=== PATIENT | male | born 1995 | race Caucasian/White ===

== ENCOUNTER 2017-02-21 11:59 | Emergency (ER) | payer OTHER ==
[~2017-02-21] VITALS: Ht 177.8 cm; Wt 78.9 kg
[~2017-02-21 11:59] MED LIST: MULT-106 PO
[2017-02-21 12:04] VITALS: Ht 177.8 cm; Wt 78.9 kg
[2017-02-21 12:15] VITALS: O2SAT 99
[2017-02-21] MEDS ORDERED: SODIUM CHLORIDE 0.9% 1000ML 1,000 ML IV ONE (12:31)
[2017-02-21] MEDS ORDERED: ONDANSETRON INJ 2 MG/ML 2 ML VIAL IV STA (12:31)
[2017-02-21] MEDS ORDERED: KETOROLAC TROMETHAMINE 30 MG/ML VIAL IV STA (12:31)
[2017-02-21] MEDS ORDERED: LORAZEPAM 2 MG/ML 1 ML VIAL IV STA (12:31)
[2017-02-21] MEDS ORDERED: CEFTRIAXONE SOD INJ 1 GM ADDVIAL IV STA (12:58)
[2017-02-21 13:23] LABS: BASO % 0.1 %; BASO ABS # 0.02 K/uL (0-0.2); COMPLETE YES; EOS % 0.1 %; HEMATOCRIT 47.7 % (42-52); IG% 0.3 %; LYMPH % 4.6 %; LYMPH ABS # 0.81 K/uL (1.2-3.4); MEAN CELL VOLUME 90.2 fL (80-100); MEAN CORPUSCULAR HEMOGLOBIN 32.1 pg (25-34); MEAN CORPUSCULAR HGB CONC 35.6 g/dl (32-36); MEAN PLATELET VOLUME 9.7 fL (7.4-10.4); NEUT % 89.9 %; PLATELET COUNT 268 K/uL (130-400); RED BLOOD COUNT 5.29 M/uL (4.7-6.1); WHITE BLOOD COUNT 17.49 K/uL (4.8-10.8)
[2017-02-21 13:31] LABS: INR 1.1 (0.9-1.1); PROTHROMBIN TIME (PATIENT) 11.3 SECONDS (9.0-12.0)
--- NOTE | 2017-02-21 13:34 | EMERGENCY ROOM VISIT NOTE ---
History Report prepared by Alma Delia: Lizzie Chacon Under the Supervision of: Dr. Hermelindo Anders M.D. First contact with patient: 12:23 Chief Complaint: VOMITING Stated Complaint: TINGLING HANDS,FAST HEARTBEAT,NAUSEA History of Present Illness The patient is a 22 year old male who presents to the Emergency Room with complaints of nausea and vomiting starting this morning. He woke up with a fever today. He also reports numbness and tingling in hands, chest pain, and a fast heart rate. He denies any history of an anxiety attack. He also complains of lower back pain. He started having a sore throat last night. The patient denies abdominal pain, blood in vomit, diarrhea, urinary symptoms, or any other complaints. He reports drinking alcohol over the weekend. He denies any drug use. He denies any history of IV drug abuse. He denies any history of abdominal surgeries. He does not have any medical problems. Source of History: patient Onset: this morning Position: other (global) Quality: other (nausea and vomiting) Associated Symptoms: + back pain, + chest pain, + fevers, + numbness, + sorethroat, No abdominal pain, No diarrhea, No urinary symptoms Review of Systems See HPI for pertinent positives & negatives. A total of 10 systems reviewed and were otherwise negative. Past Medical & Surgical Medical Problems: (1) No Known Active Medical Problems Family History Patient reports no known family medical history. Social History Smoking Status: Never Smoker Alcohol Use: occasionally Drug Use: none Marital Status: single Occupation Status: student Current/Historical Medications Scheduled Cefdinir (Omnicef), 300 MG PO Q12H Multiple Vitamins W/ Minerals (One Daily Mens), 1 TAB PO DAILY Ondasetron Odt (Zofran Odt), 4 MG SL Q6H Allergies Coded Allergies: Amoxicillin (Unverified Allergy, Unknown, RASH, 09/13/16) Azithromycin (Unverified Allergy, Unknown, RASH, 09/13/16) Penicillins (Unverified Allergy, Unknown, RASH, 09/13/16) Physical Exam Vital Signs Date Time Temp Pulse Resp B/P Pulse Ox O2 Delivery O2 Flow Rate FiO2 02/21/17 14:35 38.2 116 12 117/57 94 02/21/17 13:04 120 14 111/78 99 Room Air 02/21/17 12:15 99 Room Air 02/21/17 12:04 39.5 130 20 135/64 97 Room Air Physical Exam GENERAL: Patient is a healthy-appearing well-nourished HEAD: Normocephalic atraumatic EYES: Ocular movements intact pupils equal and react to light OROPHARYNX mucous membranes are moist no exudates present no erythema or edema present NECK: Supple no nuchal rigidity. No evidence of meningitis or encephalitis on exam. CHEST: Good equal expansion LUNGS: Clear and equal to auscultation CARDIAC: Normal S1 and S2 ABDOMEN: Soft nontender no guarding BACK: No CVA tenderness EXTREMITIES: No pain upon palpation normal muscle strength in all groups no clubbing cyanosis or edema NEURO: Patient is following commands is answering questions appropriately. Alert and oriented x3 Cranial Nerves 2-12 grossly intact Medical Decision & Procedures ER Provider Diagnostic Interpretation: X-ray results as stated below per interpretation by me and the radiologist: PA CHEST RADIOGRAPH AND UPRIGHT AND SUPINE AP RADIOGRAPHS OF THE ABDOMEN CLINICAL HISTORY: Fever. Tachycardia. Nausea. COMPARISON STUDY: No previous studies for comparison. FINDINGS: Lung volumes are normal. There is no pneumothorax or pleural effusion. Cardiac size is normal. There is mild asymmetric right upper lung opacity. There is no free air. There is no evidence for a bowel obstruction. There is a moderate amount of stool within the colon. IMPRESSION: 1. Mild right upper lobe airspace opacity suggestive of pneumonia. Post treatment radiographs to ensure resolution are recommended. 2. No free air or evidence of bowel obstruction. Electronically signed by: Kolby Randall M.D. 02/21/2017 1:39 PM Dictated Date/Time: 02/21/2017 1:37 PM Laboratory Results 02/21/17 12:41 Red Blood Count 5.29, Mean Corpuscular Volume 90.2, Mean Corpuscular Hemoglobin 32.1, Mean Corpuscular Hemoglobin Concent 35.6, Mean Platelet Volume 9.7, Neutrophils (%) (Auto) 89.9, Lymphocytes (%) (Auto) 4.6, Monocytes (%) (Auto) 5.0, Eosinophils (%) (Auto) 0.1, Basophils (%) (Auto) 0.1, Neutrophils # (Auto) 15.73, Lymphocytes # (Auto) 0.81, Monocytes # (Auto) 0.87, Eosinophils # (Auto) 0.01, Basophils # (Auto) 0.02 02/21/17 12:41 Test 02/21/17 12:41 02/21/17 12:50 02/21/17 13:23 White Blood Count 17.49 K/uL (4.8-10.8) Red Blood Count 5.29 M/uL (4.7-6.1) Hemoglobin 17.0 g/dL (14.0-18.0) Hematocrit 47.7 % (42-52) Mean Corpuscular Volume 90.2 fL (80-100) Mean Corpuscular Hemoglobin 32.1 pg (25-34) Mean Corpuscular Hemoglobin Concent 35.6 g/dl (32-36) Platelet Count 268 K/uL (130-400) Mean Platelet Volume 9.7 fL (7.4-10.4) Neutrophils (%) (Auto) 89.9 % Lymphocytes (%) (Auto) 4.6 % Monocytes (%) (Auto) 5.0 % Eosinophils (%) (Auto) 0.1 % Basophils (%) (Auto) 0.1 % Neutrophils # (Auto) 15.73 K/uL (1.4-6.5) Lymphocytes # (Auto) 0.81 K/uL (1.2-3.4) Monocytes # (Auto) 0.87 K/uL (0.11-0.59) Eosinophils # (Auto) 0.01 K/uL (0-0.5) Basophils # (Auto) 0.02 K/uL (0-0.2) RDW Standard Deviation 40.5 fL (36.4-46.3) RDW Coefficient of Variation 12.3 % (11.5-14.5) Immature Granulocyte % (Auto) 0.3 % Immature Granulocyte # (Auto) 0.05 K/uL (0.00-0.02) Prothrombin Time 11.3 SECONDS (9.0-12.0) Prothromb Time International Ratio 1.1 (0.9-1.1) Activated Partial Thromboplast Time 26.7 SECONDS (21.0-31.0) Partial Thromboplastin Ratio 1.0 Anion Gap 13.0 mmol/L (3-11) Est Creatinine Clear Calc Drug Dose 98.9 ml/min Estimated GFR () 98.2 Estimated GFR (Non- 84.7 BUN/Creatinine Ratio 11.5 (10-20) Calcium Level 9.4 mg/dl (8.5-10.1) Total Bilirubin 0.6 mg/dl (0.2-1) Aspartate Amino Transf (AST/SGOT) 21 U/L (15-37) Alanine Aminotransferase (ALT/SGPT) 26 U/L (12-78) Alkaline Phosphatase 93 U/L (45-117) Total Protein 8.7 gm/dl (6.4-8.2) Albumin 4.4 gm/dl (3.4-5.0) Globulin 4.3 gm/dl (2.5-4.0) Albumin/Globulin Ratio 1.0 (0.9-2) Monoscreen NEG (NEG) Bedside Lactic Acid Venous 6.06 mmol/L (0.90-1.70) Influenza Type A (RT-PCR) Neg for Influ A (NEG) Influenza Type A Antigen Neg for Influ A (NEG) Influenza Type B Antigen Neg for Influ B (NEG) Influenza Type B (RT-PCR) Neg for Influ B (NEG) Date/Time Source Procedure Growth Status 02/21/17 00:00 Throat Group A Streptococcus Screen - Final SPECIMEN POSITIVE FOR GROUP A BETA ST... Complete 02/21/17 00:00 Throat Group A Streptococcus Screen (JUNAID) - Final Complete Labs reviewed by ED physician. Medications Administered Medications (Trade) Dose Ordered Sig/Sid Route Start Time Stop Time Status Last Admin Dose Admin Sodium Chloride (Nss 1000ml) 1,000 ml @ 999 mls/hr Q1H1M ONCE IV 02/21/17 12:31 02/21/17 13:31 DC 02/21/17 12:31 999 MLS/HR Lorazepam (Ativan Inj) 1 mg NOW STAT IV 02/21/17 12:31 02/21/17 12:34 DC 02/21/17 12:49 1 MG Ketorolac Tromethamine (Toradol Inj) 30 mg NOW STAT IV 02/21/17 12:31 02/21/17 12:34 DC 02/21/17 12:49 30 MG Ondansetron HCl (Zofran Inj) 4 mg NOW STAT IV 02/21/17 12:31 02/21/17 12:34 DC 02/21/17 12:49 4 MG Ceftriaxone Sodium (Rocephin Inj) 1 gm NOW STAT IV 02/21/17 12:58 02/21/17 12:59 DC 02/21/17 13:19 1 GM Acetaminophen (Tylenol Tab) 1,000 mg NOW STAT PO 02/21/17 13:39 02/21/17 13:40 DC 02/21/17 13:56 1,000 MG ED Course 1223: Past medical records reviewed. The patient was evaluated in room A10. A complete history and physical examination was performed. 1231: Zofran Inj 4 mg IV, Toradol Inj 30 mg IV, Ativan Inj 1 mg IV, Sodium Chloride 1000 ml @ 999 mls/hr IV 1258: Rocephin Inj 1 gm IV 1339: Tylenol Tab 1000 mg PO 1415: Upon reexamination the patient is resting comfortably. I discussed results and treatment plan with the patient. He verbalizes agreement and understanding. The patient is ready for discharge. Medical Decision Differential diagnosis: Etiologies such as viral syndrome, otitis, pharyngitis, pneumonia, influenza, meningitis, urinary tract infection, sepsis, bacteremia, as well as others were entertained. This is a 22-year-old male who presents emergency department complaining of vomiting as well as pharyngitis. The patient is positive for strep. Serial abdominal examinations were performed on the patient in the emergency department and at no tender the patient exhibit a surgical abdomen or abdominal tenderness. Based on these findings I felt we could conservatively treat the patient's symptoms with Zofran. He is given normal saline bolus, Toradol and started on Rocephin for strep. The patient was given Tylenol in the emergency department and he was able to keep this down. Based on these findings I felt that the patient was well enough to be discharged home. I will continue him on Omnicef as well as Zofran. The patient was told to return if his fevers or out of control or he felt generally weak. Patient was in agreement with the treatment plan. Impression Primary Impression: Strep pharyngitis Additional Impression: Vomiting Scribe Attestation The scribe's documentation has been prepared under my direction and personally reviewed by me in its entirety. I confirm that the note above accurately reflects all work, treatment, procedures, and medical decision making performed by me. Departure Information Dispostion Home / Self-Care Prescriptions Ondasetron Odt (ZOFRAN ODT) 4 Mg Tab 4 MG SL Q6H for Nausea, #6 TAB Prov: Hermelindo Anders MD 02/21/17 Cefdinir (OMNICEF) 300 Mg Cap 300 MG PO Q12H for 10 Days, #20 CAP Prov: Hermelindo Anders MD 02/21/17 Referrals No Doctor, Assigned (PCP) Forms HOME CARE DOCUMENTATION FORM, IMPORTANT VISIT INFORMATION Patient Instructions ED Strep Pharyngitis Conf, My [facility], Nausea Vomit Control, Vomiting - [facility] Additional Instructions You received narcotic or benzodiazepene medication while in the emergency room today. Do not drive, operate heavy machinery, or drink alcohol under the influence of this medication. Take 600 mg Ibuprofen every 6 hours Take 1000 mg Tylenol every 6 hours Culture results are usually available in approx 48 hours You have been examined and treated today on an emergency basis only. This is not a substitute for, or an effort to provide, complete comprehensive medical care. It is impossible to recognize and treat all injuries or illnesses in a single emergency department visit. It is therefore important that you follow up closely with [facility]. Call as soon as possible for an appointment. Thank you for your time and consideration. I look forward to speaking with you again soon. Please don't hesitate to call us if you have any questions. Problem Qualifiers Additional Impression: Vomiting Vomiting type: unspecified Vomiting Intractability: unspecified Nausea presence: unspecified Qualified Codes: R11.10 - Vomiting, unspecified
[2017-02-21] MEDS ORDERED: ACETAMINOPHEN 500 MG TAB PO STA (13:39)
--- NOTE | 2017-02-21 13:41 | DIAGNOSTIC IMAGING REPORT ---
PA CHEST RADIOGRAPH AND UPRIGHT AND SUPINE AP RADIOGRAPHS OF THE ABDOMEN CLINICAL HISTORY: Fever. Tachycardia. Nausea. COMPARISON STUDY: No previous studies for comparison. FINDINGS: Lung volumes are normal. There is no pneumothorax or pleural effusion. Cardiac size is normal. There is mild asymmetric right upper lung opacity. There is no free air. There is no evidence for a bowel obstruction. There is a moderate amount of stool within the colon. IMPRESSION: 1. Mild right upper lobe airspace opacity suggestive of pneumonia. Post treatment radiographs to ensure resolution are recommended. 2. No free air or evidence of bowel obstruction. Electronically signed by: Kolby Randall M.D. 02/21/2017 1:39 PM Dictated Date/Time: 02/21/2017 1:37 PM
[2017-02-21 13:57] LABS: BUN/CREATININE RATIO 11.5 (10-20); CALCIUM 9.4 mg/dl (8.5-10.1); CREATININE 1.2 mg/dl (0.60-1.40); POTASSIUM 3.9 mmol/L (3.5-5.1)
[2017-02-21] MEDS ORDERED: CEFD300C2 PO (14:11)
[2017-02-21] MEDS ORDERED: ONDA4TAB10 SL (14:11)
[2017-02-21 14:35] VITALS: BP 117/57; PULSE 116; TEMP 38.2; O2SAT 94
[2017-02-21 16:41] LABS: INFLUENZA A PCR Neg for Influ A (NEG); INFLUENZA B PCR Neg for Influ B (NEG)
[2017-02-24 22:06] LABS: EBV EARLY ANTIGEN AB <0.91 INDEX; EPSTEIN BARR VIR CAPSID IGG 1.81 INDEX
== END 2017-02-21 14:35 | disposition home or self-care (01) ==
LOC: C.EDB 12:01 → C.EDA 14:35
DX: J02.0 Streptococcal pharyngitis (principal); R11.10 Vomiting, unspecified; R20.0 Anesthesia of skin; R07.9 Chest pain, unspecified; R00.0 Tachycardia, unspecified; M54.5 Low back pain